=== PATIENT | male | born 1965 | race Caucasian/White ===

== ENCOUNTER 2020-08-09 17:11 | Emergency (ER) | payer OTHER ==
[2020-08-09] MEDS ORDERED: ACETAMINOPHEN 500 MG TAB ONE (18:23)
[2020-08-09 19:47] LABS: SARS-COV-2 RT PCR POSITIVE (NEGATIVE)
--- NOTE | 2020-08-09 21:53 | ER ---
Nurse's Notes [facility] Name: Sacha Cai Age: 54 yrs Sex: Male : 1965 Arrival Date: 08/09/2020 Time: 17:53 Bed Waiting Private MD: Diagnosis: Presentation: 08/09 18:01 Chief complaint: Patient states: On and off fever x 1 week. Reports feeling tired and ca1 sleepy, a little cough. Coronavirus screen: Client denies travel out of the [place] in the last 14 days. cough unrelated to allergies, fatigue, fever, Client presents with at least one sign or symptom that may indicate coronavirus-19. Standard/surgical mask placed on the client. Provider contacted for isolation considerations. Ebola Screen: Patient negative for fever greater than or equal to 101.5 degrees Fahrenheit, and additional compatible Ebola Virus Disease symptoms Patient denies exposure to infectious person. Patient denies travel to an Ebola-affected area in the 21 days before illness onset. No symptoms or risks identified at this time. Initial Sepsis Screen: Does the patient meet any 2 criteria? No. Patient's initial sepsis screen is negative. Does the patient have a suspected source of infection? No. Patient's initial sepsis screen is negative. Risk Assessment: Do you want to hurt yourself or someone else? Patient reports no desire to harm self or others. Onset of symptoms was August 09, 2020. 18:01 Method Of Arrival: Ambulatory ca1 18:01 Acuity: OLEGARIO 4 ca1 Historical: - Allergies: 18:02 No Known Allergies; ca1 - Home Meds: 18:02 None [Active]; ca1 - PMHx: 18:02 None; ca1 - PSHx: 18:02 None; ca1 - Immunization history:: Flu vaccine is not up to date. - Social history:: Smoking status: Patient denies any tobacco usage or history of. Vital Signs: 18:01 BP 121 / 74; Pulse 53; Resp 16 S; Temp 100.6(O); Pulse Ox 96% on R/A; Weight 95.25 kg ca1 (R); Height 5 ft. 8 in. (172.72 cm) (R); Pain 0/10; 18:01 Body Mass Index 31.93 (95.25 kg, 172.72 cm) ca1 ED Course: 17:53 Patient arrived in ED. am2 18:02 Triage completed. ca1 18:02 Arm band placed on right wrist. ca1 19:49 Notified ED physician of a critical lab result(s). notified of pt COVID sg POSITIVE per Wilfredo in the outside lab. 21:52 Patient's name was called from ER lobby. No response. Unable to locate patient. Will ca1 disposition as left without being seen by a provider. Administered Medications: 18:07 Drug: Tylenol 1000 mg Route: PO; ca1 Outcome: 21:53 Patient left the ED. ca1 Signatures: Paresh Valverde, RN RN sg Elaina Browning am2 Taylor Salmon RN RN ca1 Corrections: (The following items were deleted from the chart) 18:43 18:08 CORONAVIRUS+MR.[email or web address] drawn and sent. ca1 EDMS
== END 2020-08-09 21:53 | disposition left against medical advice (07) ==
LOC: ER 17:11
DX: U07.1 COVID-19 (principal); Z53.21 Procedure and treatment not carried out due to patient leaving prior to being seen by health care provider
CPT/HCPCS: 0240U; 99282